=== PATIENT | male | born 1970 | race Caucasian/White ===

== ENCOUNTER 2018-12-08 08:12 | Emergency (ER) | payer OTHER ==
[2018-12-08] MEDS ORDERED: NS 0.9% 1000 ML** 1,000 ML IV ONE (08:28)
[2018-12-08] MEDS ORDERED: methylPREDNISolone 125 MG* 2 ML VIAL IV ONE (08:30)
--- NOTE | 2018-12-08 08:37 | ED ---
Neurological HPI - HPI Summary HPI Summary: A 48 y/o male presents to [facility] with a chief complaint of right sided facial droop since about 22:00 yesterday. He noticed this when he was having difficulty blinking while watching basketball. He came into the ED this morning because his noticed his right eye trouble in the morning. At triage he rated his pain as a 0/10 in severity. He denies nausea, vomiting, fevers, chills , cough or ear pain. He has a Hx of HTN and takes Lisinopril and Hydrochlorothiazide. He denies a Hx of DM. He reports a FHx of CVA from his father. Vital signs while in room HR: 65 bpm, O2 Sat: 95, BP: 173/124. 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 Onset/Duration: Sudden Onset, Started hours ago, Still Present Timing: Constant Onset Severity: Mild Current Severity: Mild Pain Intensity: 0 Pain Scale Used: 0-10 Numeric Character: Other: - right sided facial droop Aggravating: Nothing Alleviating: Nothing Associated Signs and Symptoms: Negative: Nausea/Vomiting, Fever - Allergy/Home Medications Allergies/Adverse Reactions: Allergies Allergy/AdvReac Type Severity Reaction Status Date / Time No Known Allergies Allergy Verified 12/08/18 08:22 PMH/Surg Hx/FS Hx/Imm Hx Endocrine/Hematology History: Denies: Hx Diabetes Cardiovascular History: Reports: Hx Hypertension Sensory History: Denies: Hx Deafness Infectious Disease History: Denies: History Other Infectious Disease, Traveled Outside the [place] in Last 30 Days - Family History Known Family History: Positive: Other - CVA - father - Social History Alcohol Use: None Substance Use Type: Reports: None Smoking Status (MU): Never Smoked Tobacco Review of Systems Negative: Fever, Chills Negative: Ear Ache Negative: Cough Negative: Vomiting, Nausea Neurological: Other - Positive: right sided facial droop All Other Systems Reviewed And Are Negative: Yes Physical Exam - Summary Physical Exam Summary: GENERAL: Patient is a well-developed and nourished M who is lying comfortable in the stretcher. Patient is not in any acute respiratory distress. HEAD AND FACE: Normocephalic EYES: PERRLA, EOMI x 2. EARS: Hearing grossly intact. MOUTH: Oropharynx within normal limits. NECK: Supple, trachea is midline, no adenopathy, no JVD, no carotid bruit. CHEST: Symmetric, no tenderness at palpation LUNGS: Clear to auscultation bilaterally. No wheezing or crackles. CVS: Regular rate and rhythm, S1 and S2 present, no murmurs or gallops appreciated. ABDOMEN: Soft, non-tender. Bowel sounds are normal. No abdominal abnormal pulsations. EXTREMITIES: Full ROM in all major joints, no edema, no cyanosis or clubbing. NEURO: Alert and oriented x 3. No acute neurological deficits. Speech is normal and follows commands. SKIN: Dry and warm Neuro exam extended: Cranial nerves II-XII grossly intact with the exception of Cranial nerve VII on the right, no dysmetria finger to nose, nml heel to gonzalez Triage Information Reviewed: Yes Vital Signs On Initial Exam: Initial Vitals Temp Pulse Resp BP Pulse Ox 97.0 F 67 18 191/117 98 12/08/18 08:16 12/08/18 08:16 12/08/18 08:16 12/08/18 08:16 12/08/18 08:16 Vital Signs Reviewed: Yes - [place] Coma Scale Best Eye Response: 4 - Spontaneous Best Motor Response: 6 - Obeys Commands Best Verbal Response: 5 - Oriented Coma Scale Total: 15 Diagnostics - Vital Signs Vital Signs Temp Pulse Resp BP Pulse Ox 12/08/18 08:16 97.0 F 67 18 191/117 98 - Laboratory Result Diagrams: 12/08/18 08:47 12/08/18 08:47 Lab Statement: Any lab studies that have been ordered have been reviewed, and results considered in the medical decision making process. - CT Brain CT Interpretation Completed By: Radiologist Summary of CT Findings: Negative unenhanced head CT. No evidence for intracranial hemorrhage or compelling CT stigmata of ischemic stroke. ED physician has reviewed this imaging report. - EKG 08:45 Cardiac Rate: Bradycardia - 59 bpm EKG Rhythm: Sinus Bradycardia Summary of EKG Findings: Sinus bradycardia at [address] elevation and benign early repolarization. 11:28 Cardiac Rate: Bradycardia - 47 bpm EKG Rhythm: Sinus Bradycardia Summary of EKG Findings: Sinus bradycardia at 47 bpm with inverted T waves in lateral leads, consistent with MARYJANE. NIH Scale - NIH Scale Level of Consciousness: Alert/Keenly Responsive Ask Patient the Month and His/Her Age: Both Correct Ask Pt to Open/Close Eyes and Manager Care/Release Non-Paretic Hand: Both Correctly Best Gaze (Only Horizontal Eye Movement): Normal Visual Field Testing: No Visual Loss Facial Paresis-Pt to Smile & Close Eyes or Grimace Symmetry: Partial Paralysis Motor Function - Right Arm: No Drift-Holds 10 Seconds Motor Function - Left Arm: No Drift-Holds 10 Seconds Motor Function - Right Leg: No Drift-Holds 10 Seconds Motor Function - Left Leg: No Drift-Holds 10 Seconds Limb Ataxia-Must be out of Proportion to Weakness Present: Absent Sensory (Use Pinprick to Test Arms/Legs/Trunk/Face): Normal Best Language (Describe Picture, Name Items): No Aphasia Dysarthria (Read Several Words): Normal Extinction and Inattention: No Abnormality Total Score: 2 Re-Evaluation - Re-Evaluation First Eval Re-Evaluation Time: 08:58 Change: Unchanged Comment: Discussed results so far and plan Second Eval Re-Evaluation Time: 10:25 Change: Unchanged Comment: Informed pt that he would have to wait until 02:30 for MRI, He will follow up with Dr. Tirado as an outpatient Course/Dx - Course Course Of Treatment: A 48 y/o male presents to [facility] with a chief complaint of right sided facial droop since about 22:00 yesterday. Workup is remarkable. The physical exam showed cranial nerves II-XII grossly intact with the exception of Cranial nerve VII on the right. Brain CT impression: Negative unenhanced head CT. No evidence for intracranial hemorrhage or compelling CT stigmata of ischemic stroke. Bloodwork and chemistries obtained and are WNL. Dr. Tirado evaluated the patient and agrees with the plan, he reports that the patient is requesting an MRI while in the ED, but Dr. Tirado offered that the patient could be discharged and follow up with him as an outpatient. After the patient was notified that he would have to wait four hours for his MRI, he decided to follow up with Dr. Tirado as an outpatient. He will be discharged with prescriptions for Lacrilube, Prednisone and Valacyclovir. I discussed results with patient and hereports feeling better. He is hemodynamically stable and safe for discharge. Strict return precautions given and he will otherwise follow up with his PCP. EKG at 08:45 showed Sinus bradycardia at [address] elevation and benign early repolarization. EKG at 11:28 showed Sinus bradycardia at 47 bpm with inverted T waves in lateral leads, consistent with MARYJANE. The patient denies any chest pain but troponins were checked just to be certain. Troponin of 0.00 and 0.01. I discussed results with patient and he reports feeling better. He is hemodynamically stable and safe for discharge. Strict return precautions given and he will otherwise follow up with his PCP - Diagnoses Provider Diagnoses: Qureshi's palsy, Abnormal EKG - Physician Notifications Discussed Care Of Patient With: Mary Jo Tirado Time Discussed With Above Provider: 08:58 Instructed by Provider To: MD Will See In ED Discharge - Sign-Out/Discharge Documenting (check all that apply): Patient Departure - DC Patient Received Moderate/Deep Sedation with Procedure: No - Discharge Plan Condition: Stable Disposition: HOME Prescriptions: Artificial Tear OPHTH.OINT* [Lacrilube OINT*] 1 applic RIGHT EYE Q2H #1 ophth.oint predniSONE [Prednisone 20 MG TAB] 40 mg PO DAILY WITH MEAL #8 tablet Valacyclovir HCl [Valacyclovir] 1,000 mg PO TID 7 Days #21 tablet Patient Education Materials: Qureshi Palsy (ED) Referrals: Mary Jo Tirado MD [Medical Doctor] - Dean Grande MD [Primary Care Provider] - Billy Winters MD [Medical Doctor] - Additional Instructions: Follow up with Dr. Tirado, neurologist. Follow up with Dr. Winters, international guest coordinator. Return to the ED if you experience any new or worsening symptoms. - Billing Disposition and Condition Condition: STABLE Disposition: Home - Attestation Statements Document Initiated by Scribe: Yes Documenting Scribe: Pravin Aponte Provider For Whom Kacey is Documenting (Include Credential): Dipesh Richard MD Scribe Attestation: I, Pravin Aponte, scribed for Dipesh Richard MD on 12/09/18 at 0727. Scribe Documentation Reviewed: Yes Provider Attestation: The documentation as recorded by the Pravin vazquez accurately reflects the service I personally performed and the decisions made by me, Mazin Richard MD Status of Scribe Document: Viewed
[2018-12-08 08:56] LABS: ABS Basophils 0 10^3/ul (0-0.2); ABS Eosinophils 0.1 10^3/ul (0-0.6); ABS Lymphocytes 1.3 10^3/ul (1.0-4.8); ABS Monocytes 0.4 10^3/ul (0-0.8); ABS Neutrophils 3.3 10^3/ul (1.5-7.7); ABS Nucleated RBC 0 10^3/ul; Eosinophil % 2.2 %; Hematocrit 46 % (36-46); Lymphocyte % 25.7 %; Mean Corpuscular HGB Conc 35 g/dL (31-36); Mean Corpuscular Hemoglobin 33 pg (27-31); Mean Corpuscular Volume 95 fL (80-94); Mean Platelet Volume 10.2 fL (7.4-10.4); Nucleated Red Blood Cells % 0; Platelet Count 154 10^3/uL (150-450); Red Blood Count 4.87 10^6 /uL (4.18-5.48); Red Cell Distribution Width 13 % (10.5-15); White Blood Count 5.2 10^3/uL (3.5-10.8)
[2018-12-08 09:10] LABS: Activated Partial Thrombo Time 33.6 seconds (26.0-36.3); INR 1.03 (0.77-1.02)
[2018-12-08 09:20] LABS: Albumin 4.3 g/dL (3.2-5.2); Albumin/Globulin Ratio 1.5 (1-3); Calcium 9.2 mg/dL (8.6-10.3); EGFR African American 108.1 (>60); EGFR Non-African American 89.3 (>60); Globulin 2.8 g/dL (2-4); Potassium 4.1 mmol/L (3.5-5.0); Total Bilirubin 0.8 mg/dL (0.2-1.0); Total Protein 7.1 g/dL (6.4-8.9)
[2018-12-08] MEDS ORDERED: ValACYclovir (*) 1 GM TAB PO ONE (09:26)
[2018-12-08] MEDS ORDERED: Artificial Tear OPHTH.OINT* 3.5 GM RIGHT EYE PRN (09:32)
[2018-12-08 10:27] LABS: T4, Total 7.11 mcg/dL (6.09-12.23)
[2018-12-08 10:33] LABS: TSH (Thyroid Stimulating Horm) 1.97 mcIU/mL (0.34-5.60)
[2018-12-08] MEDS ORDERED: Artificial Tear OPHTH.OINT* 3.5 GM RIGHT EYE ONE (10:38)
[2018-12-08] MEDS ORDERED: Artificial Tears* 15 ML BTL RIGHT EYE ONE (10:48)
[2018-12-08 12:31] VITALS: BP 149/109
--- NOTE | 2018-12-08 12:48 | CONS ---
CONSULTATION NOTE: DATE OF CONSULT: 12/08/18 CONSULTING PROVIDER: Dr. Richard. REASON FOR CONSULT: Right facial droop. CHIEF COMPLAINT: Inability to close the right eye. 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 The patient recalls watching the [employer] game last night, when he fell asleep approximately 10:30 p.m. on 12/07/18. He noticed that he had trouble closing the right eye last night and had some dryness of the right eye. When he woke up this morning, the dryness was worse on the right eye and felt that his right side of the face is droopy. He was showering this morning and when he was spinning water, it would deviate towards one side. When he had dinner last night, he remembers that taste of the food was different. He also has some achiness behind the right ear. He denied any recent rash. He does have a history of tick bite in July, for which he was treated with doxycycline for 2 weeks. He denied any swallowing difficulty. He denied any headaches, visual disturbance, focal weakness or paresthesias. He denied any chest pain, shortness of breath, or palpitations. The patient had some EKG changes that were noted by Dr. Richard, but he denied any chest pain. His troponin was normal. The patient had flu-like symptoms at the end of October 2018 where he had congestion in sinuses and myalgias. PAST MEDICAL HISTORY: Hypertension, history of tick exposure. MEDICATIONS: Lisinopril and hydrochlorothiazide 25 mg daily. ALLERGIES: No known drug allergies. FAMILY HISTORY: His father suffered a stroke at age 43. His mother has no history of stroke or seizures. 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 He denied any tobacco use. He drinks alcohol casually. The patient does salazar regularly and is exposed to ticks. REVIEW OF SYSTEMS: A 14-point review of systems was obtained, otherwise negative except for what is mentioned in the HPI. PHYSICAL EXAMINATION: Vitals: Temperature of 97.0, pulse of 64, respiratory rate of 18, oxygen saturation of 98%, blood pressure he presented with 191/117. Please note his blood pressure was rechecked right now and it is 146/107. The patient stated that his blood pressures are constantly high. General: Well -nourished, well-developed man, in no acute distress. Head: Normocephalic, atraumatic without any obvious abnormality. Eyes: Conjunctivae/corneae are clear. Neck is supple and symmetrical with no carotid bruits. Ears: Normal tympanic membranes. No evidence of any vesicles in the external auditory canal. Lungs: Clear to auscultation bilaterally. Cardiovascular: Regular rate and rhythm with normal S1, S2. Extremities: Normal range of motion with no cyanosis. Skin: No skin lesions or lacerations. Psych: Affect is broad and normal mood. Neurological Examination: Mental status: Awake, alert, oriented to person, place, time, and general circumstances. Speech and language including expression, naming, repetition, and comprehension were assessed and found to be normal. Cranial Nerves: Normal confrontation testing bilaterally. Pupils are mid range and reactive to light. Normal consensual response. Sensation is intact on the forehead to light touch and pinprick. Cranial Nerve VII: He has right facial droop with a House-Brackmann grading of 4-5. He has trouble closing the right eye. He has symmetric eyebrow frowning, forehead creases but definitely weak when examining the forehead muscles on the right. He also has weakness in the platysma muscle on the right. He is able to hear throughout the history process. There is symmetrical palatal elevation. There is normal strength against resistance. Tongue is symmetrical and midline with no atrophy or fasciculation. Motor Examination: No abnormal movements or pronator drift. Normal bulk and tone throughout. No fasciculation. 5/5 strength in the upper and lower extremities bilaterally. Reflexes: Right/Left brachioradialis 2/2, biceps 2/2, triceps 1/1, patella 1/1 , ankle trace/trace, plantar flexor/flexor. Sensation is intact to light touch throughout. Normal vibration and proprioception at the great toes bilaterally. Coordination: Normal ecwaee-zy-zriv and rapid alternating movement bilaterally. Gait and Station: Narrow based. Normal stance and gait. LABORATORY DATA, IMAGING, AND OTHER DIAGNOSTIC TESTING: WBC 5.2, hemoglobin 16 , hematocrit 46, platelet count of 154. INR is 1.03. Sodium of 140, potassium 4.1, chloride of 107, carbon dioxide 28, BUN 20, creatinine 0.91, glucose of 104. AST of 34, ALT of 80. Pending TSH and Lyme titer. CT head without contrast was completed on 12/08/18 and personally reviewed. There is no evidence of acute intracranial abnormality. 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 Subacute onset of lower motor neuron right facial weakness. 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 There is no evidence of any rash to suspect herpes zoster. 2. Difficulty closing the right eye. RECOMMENDATIONS: I recommend starting prednisone 60 mg daily for 7 days. I also recommend starting valacyclovir 1000 mg every 8 hours for the next 7 days. We discussed the importance in eye care. Please start Lacri-Lube ointment on the right eye before going to bed and patching the right eye. Again, education and counseling was provided to the patient and his spouse who is in the medical field. Recovery can take up to 6 months. Currently, the patient's House- Brackmann score is 4-5. I would be more than happy to follow up with the patient in the future to make sure he is recovering well. We will schedule an appointment in 6 to 8 weeks. The family feels like the patient should undergo MRI testing to evaluate for any possible parotid gland tumors, small brainstem tumors, or a possible stroke. I reassured them that the presentation here does not look like stroke and it is extremely rare, although not entirely atypical to have a parotid gland tumor compressing the right facial nerve. However, given the family's wishes, we will proceed with an MRI of the brain without contrast for further evaluation. In addition, I ordered a Lyme titer as this was not checked in the past to make sure the patient was adequately treated for Lyme in July of 2018. I discussed these findings and recommendations with Dr. Richard who agreed with the plan. TIME SPENT: Sixty minutes, of which more than 50% was spent obtaining history, examining the patient, education counseling, and discussing the treatment plan with the patient and his spouse. ADDENDUM 1130 a.m. on 12/08/2018: I was informed by Dr. Richard that the patient does not want to wait for the MRI which I don't think is necessary at this point. This can be done as an outpatient especially if his symptoms do not show some improvement in 2-3 weeks. [id number]/[facility] #: [id number] MTDD
== END 2018-12-08 12:30 | disposition home or self-care (01) ==
LOC: ED 08:12
DX: G51.0 Bell's palsy (principal); R00.1 Bradycardia, unspecified; I10 Essential (primary) hypertension; Z82.3 Family history of stroke
CPT/HCPCS: 36415; 70450; 80053; 83605; 83880; 84436; 84443; 84484; 85025; 85610; 85730; 86618; 93005; 96361; 96374; 99283; A9270-GY; J2930